=== PATIENT | female | born 1940 | race Caucasian/White ===

== ENCOUNTER 2023-09-03 06:50 | Outpatient (CLI) | payer OTHER | END 2023-09-03 19:23 | disposition home or self-care (01) | LOC: SNM 06:50 | PROVIDERS: ATTEND Student in an Organized Health Care Education/Training Program | DX: T84.091A Other mechanical complication of internal left hip prosthesis, initial encounter (principal); M25.552 Pain in left hip; Z96.642 Presence of left artificial hip joint; Y93.89 Activity, other specified; Y92.89 Other specified places as the place of occurrence of the external cause | CPT/HCPCS: 78315; A9503 ==